=== PATIENT | female | born 1985 | race American Indian/Alaskan Native ===

== ENCOUNTER 2017-11-18 01:04 | Emergency (ER) | payer OTHER ==
[2017-11-18 02:31] LABS: Basophils # (Auto) 0.1 K/mm3 (0.0-0.1); Basophils % (Auto) 0.7 % (0.0-1.8); Eosinophils # (Auto) 0.4 K/mm3 (0.0-0.4); Eosinophils % (Auto) 5.3 % (0.0-4.3); Hematocrit 34.1 % (30.3-42.9); Hemoglobin 11.5 gm/dl (10.1-14.3); Lymphocytes # (Auto) 3.1 K/mm3 (1.2-5.4); Lymphocytes % (Auto) 38.2 % (13.4-35.0); Mean Corpuscular HGB Conc 34 % (30-34); Mean Corpuscular Hemoglobin 29 pg (28-32); Mean Corpuscular Volume 87 fl (79-97); Monocytes # (Auto) 0.5 K/mm3 (0.0-0.8); Monocytes % (Auto) 6.8 % (0.0-7.3); Platelet Count 281 K/mm3 (140-440); Red Blood Count 3.94 M/mm3 (3.65-5.03); Red Cell Distribution Width 13.7 % (13.2-15.2)
[2017-11-18 02:56] LABS: Bilirubin,Urine NEG (Negative); Blood,Urine LG (Negative); Color,Urine Red (Yellow); Urobilinogen,Urine < 2.0 mg/dL (<2.0)
[2017-11-18 03:00] LABS: RBC,Urine > 182.0 /HPF (0.0-6.0)
[2017-11-18] MEDS ORDERED: NACL 0.9% 1000 ML 2,000 ML ONE (03:43)
[2017-11-18] MEDS ORDERED: ZOFRAN ONE ×2 (03:56→08:33)
[2017-11-18] MEDS ORDERED: MORPHINE ONE (03:56)
[2017-11-18] MEDS ORDERED: NACL 0.9% 1000 ML 2,000 ML IV ONE (04:06)
[2017-11-18] MEDS ORDERED: ZOFRAN IV ONE ×2 (04:06→08:34)
[2017-11-18] MEDS ORDERED: MORPHINE IV ONE (04:06)
--- NOTE | 2017-11-18 05:58 | Ultrasound Report ---
FINAL REPORT EXAM: US OB TRANSVAGINAL HISTORY: +hcg vaginal bleeding TECHNIQUE: Transvaginal imaging was obtained of the pelvis with Doppler interrogation of the uterus and adnexa. FINDINGS: The uterus is anteverted measuring 14.4 cm x 8.4 cm x 8.4 cm. The myometrium is homogeneous. There thickening of the endometrium measuring 30.6 millimeters. The endometrium is hypoechoic and asymmetric in thickness. Retained products of conception cannot be excluded. There is no evidence of a gestational sac or embryo. The cervix is closed. Free fluid is not seen. The right ovary is normal size contour and echotexture measuring 3.4 cm x 1.8 cm by 3.2 cm The left ovary measures 4.7 cm x 3.5 cm x 4.2 cm. There is a functional cyst in the left ovary measures 3.4 cm in diameter most likely representing a corpus luteum cyst. IMPRESSION: Irregularly thickened endometrium measuring to 30.6 mm without evidence of a gestational sac or embryo. The findings may represent retained products of conception. 3.4 cm functional cyst left ovary most likely representing corpus luteum cyst. No evidence of free fluid or adnexal masses
--- NOTE | 2017-11-18 05:58 | Ultrasound Report ---
FINAL REPORT EXAM: US OB < = 14 WEEKS FETUS HISTORY: +hcg vaginal bleeding TECHNIQUE: Transabdominal imaging was obtained the pelvis including Doppler interrogation of the uterus and adnexa. FINDINGS: The uterus is anteverted measuring 14.4 cm x 8.4 cm x 8.4 cm. There is no evidence of an intrauterine gestational sac or embryo. The endometrium is thickened measuring up to 30.6 mm in thickness. The endometrium is somewhat hypoechoic and irregular in thickness. Retained products of conception cannot be excluded. Free fluid is not seen. The right ovary is normal size, contour, blood flow and echotexture measuring 3.4 cm x 1.8 cm x 3.2 cm. The left ovary measures 4.7 cm x 3.5 cm x 4.2 cm. Within the left ovary is a functional cyst measuring 3.4 cm in diameter most likely representing corpus luteum cyst. IMPRESSION: Abnormally thickened endometrium with heterogeneous appearance as described. The findings are suspicious for retained products of conception. No evidence of an intrauterine or ectopic otherwise. 3.4 cm functional cyst left ovary most likely representing corpus luteum cyst
--- NOTE | 2017-11-18 06:25 | Emergency Department Report ---
ED Female HPI - General Chief complaint: Vaginal Bleeding Stated complaint: ABN VAG BLEEDING; +PREG-WKS UNKNOWN Time Seen by Provider: 11/18/17 06:19 Source: patient, family Mode of arrival: Ambulatory Limitations: No Limitations - History of Present Illness Initial comments: Patient is a 32-year-old female that presents emergency room with complaints of pelvic pain and vaginal bleeding. Patient states that her bleeding started at midnight. Patient states she is but is not sure how far along she is as I had any care. Patient is a . Patient states the pain is 10 out of 10 and is worse with movement and walking. Patient states the pain is better with rest. Patient states her vaginal bleeding is diffuse and she is passing large clots. MD Complaint: vaginal bleeding, pelvic pain -: Sudden Location: suprapubic Radiation: non-radiating Severity: severe Severity scale (0 -10): 10 Quality: sharp, stabbing Consistency: constant Improves with: other Worsens with: movement Are you Now?: Yes Associated Symptoms: vaginal bleeding, abdominal pain. denies: vaginal discharge, nausea/vomiting, fever/chills, headaches, loss of appetite, dysuria, hematuria, rash, seizure, shortness of breath, syncope, weakness - Related Data Sexually active: Yes : 6 Para: 5 A: 0 Previous Rx's Medication Instructions Recorded Last Taken Type HYDROcodone/APAP 7.5-325 [[place] 1 each PO Q6HR PRN #15 tablet 11/18/17 Unknown Rx 7.5/325] Methylergonovine Maleate 0.2 mg PO Q6HR 2 Days #8 tablet 11/18/17 Unknown Rx [Methergine] Ondansetron [Zofran Odt] 4 mg PO Q6HR PRN #20 tab.rapdis 11/18/17 Unknown Rx Allergies Allergy/AdvReac Type Severity Reaction Status Date / Time No Known Allergies Allergy Verified 11/18/17 04:07 ED Review of Systems ROS: Stated complaint: ABN VAG BLEEDING; +PREG-WKS UNKNOWN Other details as noted in HPI Constitutional: denies: chills, fever Eyes: denies: eye pain, eye discharge, vision change ENT: denies: ear pain, throat pain Respiratory: denies: cough, shortness of breath, wheezing Cardiovascular: denies: chest pain, palpitations Endocrine: no symptoms reported Gastrointestinal: abdominal pain. denies: nausea, diarrhea Genitourinary: denies: urgency, dysuria, discharge Musculoskeletal: denies: back pain, joint swelling, arthralgia Skin: denies: rash, lesions Neurological: denies: headache, weakness, paresthesias Psychiatric: denies: anxiety, depression Hematological/Lymphatic: denies: easy bleeding, easy bruising ED Past Medical Hx - Past Medical History Previous Medical History?: Yes Hx Asthma: Yes - Surgical History Past Surgical History?: No - Family History Family history: no significant - Social History Smoking Status: Never Smoker Substance Use Type: None - Medications Home Medications: Home Medications Medication Instructions Recorded Confirmed Last Taken Type HYDROcodone/APAP 7.5-325 [[place] 1 each PO Q6HR PRN #15 tablet 11/18/17 Unknown Rx 7.5/325] Methylergonovine Maleate 0.2 mg PO Q6HR 2 Days #8 tablet 11/18/17 Unknown Rx [Methergine] Ondansetron [Zofran Odt] 4 mg PO Q6HR PRN #20 tab.rapdis 11/18/17 Unknown Rx ED Physical Exam - General Limitations: No Limitations General appearance: alert, in no apparent distress - Head Head exam: Present: atraumatic, normocephalic - Eye Eye exam: Present: normal appearance - ENT ENT exam: Present: mucous membranes moist - Neck Neck exam: Present: normal inspection - Respiratory Respiratory exam: Present: normal lung sounds bilaterally. Absent: respiratory distress - Cardiovascular Cardiovascular Exam: Present: regular rate, normal rhythm. Absent: systolic murmur, diastolic murmur, rubs, gallop - GI/Abdominal GI/Abdominal exam: Present: soft, tenderness (suprapubic tenderness), normal bowel sounds - Extremities Exam Extremities exam: Present: normal inspection - Back Exam Back exam: Present: normal inspection - Neurological Exam Neurological exam: Present: alert, oriented X3 - Psychiatric Psychiatric exam: Present: normal affect, normal mood - Skin Skin exam: Present: warm, dry, intact, normal color. Absent: rash ED Course Vital Signs 11/18/17 11/18/17 11/18/17 01:23 04:05 07:45 Temperature 98.4 F Pulse Rate 77 71 72 Respiratory 17 14 16 Rate Blood Pressure 118/82 Blood Pressure 113/65 112/71 [Left] O2 Sat by Pulse 99 98 98 Oximetry - Reevaluation(s) Reevaluation #1: Ultrasound and labs were reviewed with patient. 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 Dr. Mitchell recommends Methergine 0.2 mg IM 1 and then follow up as an outpatient tomorrow morning. Patient gave me an appointment time for 1045 at her office. We'll give patient the discharge instructions and directions to Dr. Mitchell's office. Dr. Mitchell also recommends Methergine by mouth as 0.2 mg by mouth every 6 hours 2 days. Doctor or she does not recommend inpatient treatment or a D&C at this time 11/18/17 06:50 Reevaluation #3: Patient states she feels better and pain has decreased. Patient states she thinks the vaginal bleeding has slowed down since the medications. Patient is stable for discharge. Patient given return instructions and strict ED follow- up instructions. Patient also instructed to follow-up with Dr. Mitchell in 24 hours at her appointment time at 1045AM tomorrow morning. She also instructed to take vitamin. Patient instructed to increase water and rest. Patient instructed to avoid driving and exertion and activity until cleared by [employer]. 11/18/17 08:03 ED Medical Decision Making - Lab Data Result diagrams: 11/18/17 01:56 - Radiology Data Radiology results: report reviewed Early thickened endometrium measuring 20 30.6 mm without evidence of gestational sac or embryo. Findings may represent retained products of conception. - Medical Decision Making Patient is a 32-year-old female that presents March or vaginal bleeding and pelvic pain. Patient found to be having a miscarriage and stable for discharge from an obstetric standpoint per Dr. Mitchell. Patient will be sent home with Methergine prescription and pain meds and ER precautions - Differential Diagnosis vaginal bleeding. pelvic pain. abd pain. threatened . Critical care attestation.: If time is entered above; I have spent that time in minutes in the direct care of this critically ill patient, excluding procedure time. ED Disposition Clinical Impression: Vaginal bleeding, Miscarriage, Pelvic pain, Incomplete Disposition: - TO HOME OR SELFCARE Is pt being admited?: No Does the pt Need Aspirin: No Condition: Stable Instructions: Spontaneous Miscarriage (ED) Additional Instructions: Patient to Follow-up primary care in 2-3 days. Patient to follow up with Dr. Mitchell in the morning. Patient to return to ER if condition worsens. Patient state meds as directed. Patient increase water. Patient to rest. Patient to avoid exertion and activity. Patient to avoid driving. Patient take ibuprofen or Tylenol when necessary for pain Prescriptions: HYDROcodone/APAP 7.5-325 [[place] 7.5/325] 1 each PO Q6HR PRN #15 tablet PRN Reason: Pain Methylergonovine Maleate [Methergine] 0.2 mg PO Q6HR 2 Days #8 tablet Ondansetron [Zofran Odt] 4 mg PO Q6HR PRN #20 tab.rapdis PRN Reason: Nausea And Vomiting Referrals: MICHELLE MITCHELL MD [Staff Physician] - 24 Hours PRIMARY CARE, [Primary Care Provider] - 2-3 Days Forms: Accompanied Note, Work/School Release Form(ED) Time of Disposition: 08:02
[2017-11-18] MEDS ORDERED: DILAUDID IV ONE (06:32)
[2017-11-18] MEDS ORDERED: METHERGINE IM ONE (06:49)
[2017-11-18 07:45] VITALS: BP 112/71
== END 2017-11-18 08:45 | disposition home or self-care (01) ==
LOC: ED 01:04
DX: O03.4 Incomplete spontaneous abortion without complication (principal); R10.2 Pelvic and perineal pain; J45.909 Unspecified asthma, uncomplicated
CPT/HCPCS: 36415; 76801; 76817; 81001; 84702; 85025; 86850; 86900; 86901; 96361; 96372; 96374; 96375; 99284; J1170; J2210; J2270; J2405; J7030